=== PATIENT | female | born 1965 | race Caucasian/White ===

== ENCOUNTER 2017-12-04 19:13 | Emergency (ER) | payer BC, OTHER ==
--- NOTE | 2017-12-04 20:19 | EDPHY ---
HPI/HX/ROS/PE/MDM Narrative: CHIEF COMPLAINT: Abdominal pain, headache. HISTORY OF PRESENT ILLNESS: This patient is a 52 year old female arriving with her sister, complaining of headache, abdominal pain, and nausea. The patient is currently visiting [place] and flew in from [place], [place] this morning. One week ago, she had similar symptoms including right-sided abdominal pain and vomiting and went to the emergency department in [place]. US abdomen at that time was negative, and she was diagnosed with gastroenteritis. Today after lunch, she developed a similar right-sided pain. She feels her abdomen is distended and has been burping often. She has vomited twice and endorses diarrhea. No hematemesis or hematochezia. She has a heartburn sensation in her chest with associated tightness. This does not radiate. She has history of GERD, and took her Prilosec this morning as usual. Additionally, the patient gets frequent migraines and has a headache and nausea. No personal or family history of CAD. No fever, chills, chest pain, shortness of breath, palpitations, urinary complaints, lightheadedness. Of note, the patient has had history of elevated liver function tests, unknown origin. Hepatitis panels were all negative. She discontinued alcohol use for several months, and her LFTs returned to normal. She denies heavy alcohol use. REVIEW OF SYSTEMS: Aside from elements discussed in the HPI, a comprehensive 10-point review of systems was reviewed and is negative. PAST MEDICAL HISTORY: WPW s/p ablation. GERD. Hypertension. Hyperlipidemia. Appendectomy. Hernia repair. SOCIAL HISTORY: Sister at bedside. . Lives in [place]. VITAL SIGNS: Reviewed by me GENERAL: Well-developed, well-nourished, resting comfortably in no respiratory distress. HEENT: Atraumatic. Eyes: No icterus, no injection. Mouth: moist mucous membranes. No erythema or lesions. Neck: supple with no adenopathy. LUNGS: Clear to auscultation bilaterally, no wheezes, rhonchi or rales. CARDIAC: Regular rate and rhythm, no rubs, murmurs or gallops. ABDOMEN: Right upper quadrant and epigastric tenderness. Distended. Palpable liver edge. Soft, bowel sounds normal. BACK: No CVA tenderness. EXTREMITIES: No trauma. No edema. Range of motion is normal throughout. NEURO: Alert and oriented, grossly nonfocal. SKIN: Warm and dry, no rash. PSYCHIATRIC: Normal mentation, no agitation. Portions of this note were transcribed by a medical physicist. I personally performed a history, physical exam, medical decision making, and confirmed accuracy of information the transcribed note. ED Course: This 52 y/o female presents with headache, abdominal pain, and nausea. Plan for EKG, chest x-ray, labs including CBC, chemistries, liver/lipase, troponin. Plan for CT abdomen/pelvis. Plan to administer 4mg IV Zofran for nausea relief and GI cocktail for symptom relief. 20:55 Chest x-ray negative for acute processes. Reviewed laboratory studies. LFT/lipase within normal limits. Plan to proceed with CT for further evaluation. 21:[address] García, radiologist. CT negative for acute processes. 21:40 Reassessed patient. She is feeling better following Zofran / GI cocktail administration. Plan to discharge home in good condition. She will follow up with a GI specialist in [place] upon her return. MDM: After obtaining the patient's history and performing an examination, differential diagnosis considered included but was not limited to biliary dysfunction, cholecystitis, gastritis, pancreatitis, kidney stones, urinary tract infections and other causes. - Data Points Imaging Results: CT Abd/Pelvis Impression: 1. Normal bowel pattern. No bowel obstruction or evidence of adynamic ileus. 2. No CT evidence of cholecystitis or pancreatitis. 3. No free fluid, abscess, or localized inflammatory process. Findings discussed with Emergency Department physician, Alia Acosta M.D., on December 04, 2017 at 2123. Dictated By: Garcia García MD Imaging: Discussed imaging studies w/ callisthenics instructor Radiologist, I viewed and interpreted images myself Laboratory Results: Laboratory Results 12/04/17 19:35 12/04/17 19:35 Medications Given: Discontinued Medications Al Hydroxide/Mg Hydroxide (Maalox Susp) 30 ml PO ONCE ONE Stop: 12/04/17 20:24 Last Admin: 12/04/17 20:42 Dose: 30 ml Hyoscyamine Sulfate (Levsin, Hyomax-Sl) 0.25 mg PO ONCE ONE Stop: 12/04/17 20:24 Last Admin: 12/04/17 20:42 Dose: 0.25 mg Lidocaine (Lidocaine 2% Viscous) 15 ml PO ONCE ONE Stop: 12/04/17 20:24 Last Admin: 12/04/17 20:42 Dose: 15 ml Ondansetron HCl (Zofran) 4 mg IVP EDNOW ONE Stop: 12/04/17 20:24 Last Admin: 12/04/17 20:41 Dose: 4 mg General Time Seen by Provider: 12/04/17 19:49 Initial Vital Signs: Initial Vital Signs Temperature (C) 36.8 C 12/04/17 19:14 Heart Rate 84 12/04/17 19:14 Respiratory Rate 16 12/04/17 19:14 Blood Pressure 138/89 H 12/04/17 19:14 O2 Sat (%) 94 12/04/17 19:14 O2 Delivery Mode Room Air Allergies/Adverse Reactions: meperidine HCl [From Demerol] Allergy (Verified 12/04/17 19:18) Home Medications: Medication Instructions Recorded Dicyclomine [Bentyl 20 MG (*)] 20 mg PO QID PRN #20 tab 12/04/17 Lisinopril 12/04/17 Ondansetron Odt [Zofran Odt 4 mg 4 mg PO Q6 PRN #8 tab 12/04/17 (RX)] Prilosec 12/04/17 Departure - Departure Disposition: Home, Routine, Self-Care Clinical Impression: Nausea vomiting and diarrhea Abdominal pain Qualifiers: Abdominal location: upper abdomen, unspecified Qualified Code(s): R10.10 - Upper abdominal pain, unspecified Condition: Good Instructions: Dicyclomine (By mouth), Ondansetron (By mouth), Acute Nausea and Vomiting (ED), Abdominal Pain (ED) Additional Instructions: 1. Follow up with a gastroenterology specialist in [place] when you return. 2. For your abdominal pain, I suggested you start with a bland diet and advance as tolerated. This means start with clear liquids such as water, Gatorade, juice, flat non- caffeinated soda. If you tolerate clear liquids, then you may add bland foods such as bananas, rice, or toast. If you do not have any worsening of your symptoms, you may begin to resume a regular diet. 3. Return to the emergency department for fever, worsening pain, uncontrollable vomiting or diarrhea, or other worsening of condition. 4. Take Bentyl as prescribed. 5. Take Zofran as prescribed. Referrals: [facility] [Other] - As per Instructions Prescriptions: Dicyclomine [Bentyl 20 MG (*)] 20 mg PO QID PRN #20 tab PRN Reason: cramping abdominal pain Ondansetron Odt [Zofran Odt 4 mg (RX)] 4 mg PO Q6 PRN #8 tab PRN Reason: Nausea Report Scribed for: Alia Acosta Report Scribed by: Leonor Carreon Date of Report: 12/04/17 Time of Report: 20:20
[2017-12-04] MEDS ORDERED: HYOSCYAMINE SULFATE 0.125 MG TAB PO ONE (20:23)
[2017-12-04] MEDS ORDERED: MAG HYDROX/AL HYDROX/SIMETH 30 ML UDCUP PO ONE (20:23)
[2017-12-04] MEDS ORDERED: ONDANSETRON 4 MG/2 ML VIAL IVP ONE (20:23)
[2017-12-04] MEDS ORDERED: LIDOCAINE 2% VISCOUS 15 ML UDCUP PO ONE (20:23)
[2017-12-04 20:38] LABS: PLATELET COUNT 174 10^3/uL (150-400)
--- NOTE | 2017-12-04 20:59 | CPEKG ---
Heart Rate: 70 RR Interval: 857 P-R Interval: 176 QRSD Interval: 76 QT Interval: 416 QTC Interval: 449 P [place]: 25 QRS [place]: 56 T Wave [place]: 35 EKG Severity - NORMAL ECG - EKG Impression: SINUS RHYTHM Electronically Signed By: Alia Acosta 05-Dec-2017 00:29:49
[2017-12-04] MEDS ORDERED: IOPAMIDOL (ISOVUE 370) 100 ML BTL IV ONE (21:00)
[2017-12-04 22:10] VITALS: BP 100/69; PULSE 74; RESP 16; TEMP 97.7; O2SAT 92
== END 2017-12-04 22:09 | disposition home or self-care (01) ==
DX: R10.11 Right upper quadrant pain (principal); R11.2 Nausea with vomiting, unspecified; I10 Essential (primary) hypertension; R19.7 Diarrhea, unspecified; Z90.89 Acquired absence of other organs
CPT/HCPCS: 96374; J2405; Q9967